=== PATIENT | female | born 1990 | race Caucasian/White ===

== ENCOUNTER → 2016-09-25 | Outpatient (CLI) | payer OTHER ==
--- NOTE | 2016-09-25 10:29 | DI ---
MRI LUMBAR SPINE SCAN WITHOUT IV CONTRAST, 09/25/2016 8:10 AM: Clinical History: Spinal stenosis. Previous Exam: 03/14/2016. Technique: Sagittal and axial T2 weighted; sagittal T1 weighted and T2 STIR; and axial PD. No IV cont rast was ordered. The vertebral bodies are of normal height and size. Since the last examination, the patient has under gone anterior and posterior fusion at L5-S1. The anterior fusion consists of a bone graft cage that l ies on the right half of the disc space. Posterior fusion is performed with a metallic struts on the left side that is transfixed with pedicle screws on the left side between L5 and S1. There is disc sp joaquín narrowing at L1-2. The L1-2 and the L3-4 through L5-S1 disc spaces show desiccation change. The c ord terminates at T12-L1, and the conus medullaris is normal. The disc spaces from T10-11 through T12 -L1 are normal. The L1-2 disc space has a very mild circumferentially bulging but not herniated disc without canal or neural foraminal stenosis. L2-3 is normal. L3-4 has a very mild circumferentially bu lging but not herniated disc with a midline disc annulus tear. L4-5 has a focal midline bulging but n ot herniated disc without canal or neural foraminal stenosis. There is edema in the L5 and S1 vertebr al bodies in association with the bone graft cage. There is no canal or neural foraminal stenosis. Readin. Status post anterior and posterior fusions at L5-S1. The bone graft cage is situated in the right half of the L5-S1 disc space and the respective vertebral endplates show marked edema probably relat ed to the recent surgical status. There is no canal or neural foraminal stenosis. 2. There are bulging but not herniated discs without canal or neural foraminal stenosis at L1-2, L3- 4, and L4-5. 3. The disc spaces from T10-11 through T12-L1 and at L2-3 are normal.
== END ==
LOC: MRI 08:03
PROVIDERS: ATTEND Neurological Surgery
DX: M48.06 Spinal stenosis, lumbar region (principal); M47.816 Spondylosis without myelopathy or radiculopathy, lumbar region
CPT/HCPCS: 72148

== ENCOUNTER → 2016-10-02 | Outpatient (CLI) | payer OTHER ==
[2016-10-02 18:43] LABS: HIV ANTIBODY NEGATIVE (N); HIV-1 P24 ANTIGEN NEGATIVE (N)
[2016-10-04 11:11] LABS: HEP B CORE IGM ANTIBODY Negative (Negative); HEPATITIS B SURFACE AG Negative (Negative)
[2016-10-04 17:30] LABS: HEPATITIS C ANTIBODY SCREEN Negative (Negative)
[2016-10-04 17:30] LABS: SYPHILIS IGG WITH REFLEX Negative (Negative)
== END ==
LOC: MOB LAB 15:55
PROVIDERS: ATTEND Physician Assistant Medical
DX: A64 Unspecified sexually transmitted disease (principal); Z20.2 Contact with and (suspected) exposure to infections with a predominantly sexual mode of transmission
CPT/HCPCS: 36415; 86695; 86696; 86703; 86705; 86709; 86780; 86803; 87340; 87491; 87591

== ENCOUNTER 2016-10-04 10:05 | Emergency (ER) | payer OTHER ==
[2016-10-04 10:34] VITALS: RESP 18; TEMP 97.1
--- NOTE | 2016-10-04 10:47 | PDOC ---
General Adult HPI - General Chief Complaint: Lower Extremity Problem/Injury Stated Complaint: leg pain Date Seen by Provider: 10/04/16 Time Seen by Provider: 10:10 Source: POSITIVE: Patient Exam Limitations: POSITIVE: No limitations Nurse's Notes Reviewed & Considered: Yes - History of Present Illness Initial Comment: The patient is a 25-year-old female who presents to the emergency department with worsening right leg pain. She underwent a L5-S1 fusion per Dr. Poole in [place] in July. Prior to and since her surgery she has continued to have problems with right leg pain. She states that she woke up this morning with intense pain in her right leg which has been unrelieved with Percocet at home. She denies any recent injury. She states that she has had some cold sweats and goosebumps over the past couple of days. She denies fever. She had one episode of mild urinary incontinence. She states that her right knee gives out occasionally possibly from pain. She states that the pain shoots down her right buttock down the back of her leg into the sole of her foot. She has had this pain since the surgery however the pain is more intense today. She did have an MRI performed last week and was started on a Medrol Dosepak which she started yesterday. In addition she ran out of Neurontin yesterday. Her mom had contacted Dr. Poole and he had recommended that she come to the emergency room for further pain control. Have you received a tetanus shot in the past 10 years?: Unknown - Patient Home Medications Home Medications: Home Medications Ibuprofen 800 mg PO TID PRN 02/28/15 Gabapentin 3 cap PO TID #270 cap 10/17/15 Hydrocodone/Acetaminophen [Hydrocodon-Acetaminoph 7.5-325] 1 - 2 tab PO Q6H #30 tab 07/28/16 Gabapentin [Neurontin] 900 mg PO TID #180 cap 10/04/16 Ketorolac Tromethamine [Toradol] 10 mg PO Q6H PRN #15 tablet 10/04/16 methylPREDNISolone Dose Pack [Medrol Dose Pack] 1 each PO ASDIR 10/04/16 - Patient Allergies Allergies/Adverse Reactions: Allergies Allergy/AdvReac Type Severity Reaction Status Date / Time codeine Allergy VOMIT Verified 10/04/16 10:17 tramadol Allergy N/V Verified 10/04/16 10:17 HEADACHE Past Medical History - heen HEENT History: Other (please comment) Additional HEENT History: DENTAL CARIES/H/O EAR ACHES Cardiovascular History: Other (please comment) Additional Cardiovasular History: HEART MURMUR Respiratory History: Other (please comment) Additional Respiratory History: smoker Gastrointestinal History: GERD, Gallbladder Disease Additional Gastrointestinal History: scooby Genitourinary History: Kidney Stones, Other (please comment) Additional Genitourinary History: INFECTIOUS DISORDER OF KIDNEY PER DR LIM. PATIENT DENIES ANY ISSUES REGARDING KIDNEY THAT SHE IS AWARE OF Endocrine History: Denies History Musculoskeletal History: Back Pain, Other (please comment) Prosthesis or Implant: No Additional Musculoskeletal History: chronic back pain, S1 L5 fusion 07/2016 Neurological History: Denies History Blood Disorders: Denies History Psychiatric History: Denies History History of Sexually Transmitted Diseases: No Female Reproductive History: Other (please comment) Additional Female Reproductive History: tubal ligation Cancer History: Denies History Cancer Treatment / Date(s) of Treatment: 2006 In Past Year Been Physically Harmed or Verbally Threatened: No History of MDRO: No History of Other Communicable Diseases: No Tobacco Use: Current Every Day Smoker Alcohol Use: Sober Substance Use Type: None Previous Surgical History: Yes Type / Date of Surgery: TUBAL LIGATION, CHOLECYSTECTOMY. L5 S1 Fusion 07/2016 Anesthesia Reactions: No (IRREGULAR HEART BEAT) Malignant Hyperthermia: No Significant Family History: Asthma, Hypertension Past Medical History Reviewed: Reviewed - No Changes ROS - Limitations ROS Limitations: No Limitations Constitution: REPORTS: Chills. DENIES: Fever Cardiovascular: REPORTS: Denies Cardiac Symptoms Respiratory: REPORTS: Denies Resp Symptoms Neurological: DENIES: Headache, Numbness, Weakness (She does report that her knee gives out occasionally in her right leg although it sounds like mostly secondary to pain) Gastrointestinal: REPORTS: Denies GI Symptoms Endocrine: REPORTS: Denies Symptoms Musculoskeletal: DENIES: Lower Extremity Swelling Genitourinary: REPORTS: Other (One episode of mild urinary incontinence). DENIES: Dysuria, Flank Pain, Hematuria, Difficulty Urinating Eyes: REPORTS: Denies Symptoms ENT: REPORTS: Denies Symptoms Skin: DENIES: Rash General Adult Exam - General Appearance General Appearance: POSITIVE: Alert, Cooperative, No Acute Distress - HEENT HEENT: POSITIVE: Head Inspection Nml - Neck Neck: POSITIVE: Normal Inspection - Respiratory Respiratory: POSITIVE: No Respiratory Distress, Breath Sounds Normal - Cardiovascular Cardiovascular: POSITIVE: Regular Rate & Rhythm, No Murmur Peripheral Pulses: Dorsalis-pedis (R): 2+ - Abdomen Abdomen: Soft: (All Quadrants), Denies Tenderness: (All Quadrants), No Distention: (All Quadrants) - Back Back: POSITIVE: Other (Examination of her lower back does reveal a midline incision from previous surgery which is well healed, there is no surrounding erythema or induration or drainage from the wound, she does have generalized tenderness in the lower lumbar region and especially over the right SI joint.) - Skin Skin: POSITIVE: Normal Color, No Rash - Extremities Extremity: Normal ROM: (All Extremities), Normal Inspection: (All Extremities) - Neurological / Psychological Neurological: POSITIVE: Motor Normal, Sensation Normal Reflexes: Achilles (R): 2+, Achilles (L): 2+, Patellar (R): 3+, Patellar (L): 2+ General Adult Progress - Results Reviewed by me Lab Results Reviewed: Yes Lab Results:: Laboratory Results 10/04/16 Range/Units 11:00 WBC 12.14 H (4.8-10.8) 10^3/uL RBC 5.59 H (4.20-5.40) 10^6/uL Hgb 16.2 H (12.0-16.0) g/dL Hct 47.8 H (37.0-47.0) % MCV 85.5 (81-99) FL MCH 29.0 (27-31) PG MCHC 33.9 (33-37) g/dL RDW Std Deviation 41.3 (39-50) fL RDW Coeff of Ce 13.5 (11.5-14.5) % Plt Count 302 (140-350) 10*3/uL MPV 10.3 (7.4-12.2) FL Immature Gran % (Auto) 0.1 (0-5) % Neut % (Auto) 72.5 (50-80) % Lymph % (Auto) 21.3 (10-50) % [place] % (Auto) 4.9 L (5-15) % Eos % (Auto) 0.8 (0-8) % Baso % (Auto) 0.4 (0-1) % Immature Gran # (Auto) 0.01 10*3/UL Neut # (Auto) 8.80 10*3/UL Lymph # (Auto) 2.59 10*3/uL [place] # (Auto) 0.59 (0.3-0.8) 10*3/UL Eos # (Auto) 0.10 10*3/UL Baso # (Auto) 0.05 10*3/UL WBC Morphology Comment Normal morphology (NORM) Plt Morphology Comment Normal morphology (NORM) RBC Morph Comment Normal morphology (NORM) ESR 2 (0-20) MM/HR Sodium 140 (135-145) meq/L Potassium 4.1 (3.8-5.2) meq/L Chloride 104 (98-112) meq/L Carbon Dioxide 24 (23-33) meq/L Anion Gap 12 (5-20) BUN 9 (7-22) mg/dL Creatinine 0.6 (0.50-1.20) mg/dL Estimated GFR > 60 (>60 ml/min/1.73m(2)) BUN/Creatinine Ratio 15.00 (6-20) Glucose 97 (78-110) mg/dL Calculated Osmolality 288.0 (267-292) mOsm/kg Calcium 10.2 (8.7-10.7) mg/dL Total Bilirubin 0.8 (0.3-1.2) mg/dL AST 17 (8-39) IU/L ALT 41 (9-52) IU/L Alkaline Phosphatase 95 (38-126) IU/L C-Reactive Protein 0.7 (0.0-0.9) mg/dL Total Protein 8.3 H (6.1-8.0) g/dL Albumin 4.9 H (3.5-4.8) g/dL Globulin 3.4 (2.50-4.10) g/dL Albumin/Globulin Ratio 1.40 (1.3-2.0) mg/g - Patient's Progress MDM / ED Course: Shortly after arrival I had contacted [facility] to discuss patient with Dr. Poole. He was initially tied up taking care of another patient there and was unavailable. I subsequently rasheed some baseline blood work and she was given Toradol 30 mg IV, morphine 4 mg IV and Zofran 4 mg IV for acute pain. Her pain came down to approximately a 7 out of 10 and was located primarily in the right hip region. She stated this is basically her baseline amount and location of pain. Lab work was all essentially unremarkable except for a mildly elevated white count which is likely attributed to recently starting on the Medrol Dosepak. I was able to discuss the patient with Dr. Poole and discussed laboratory findings and current presentation. The patient did have a recent MRI of her lumbar spine and he is unsure what the etiology of her continued radicular pain is at this point however he does not think it is related to her back. She is being referred for steroid injection and likely to pain management. He did not recommend any further evaluation at this time. The patient will be started back on her Neurontin. She previously was on 900 mg 3 times a day however has weaned herself off over the past several weeks because she knew she was running out. She will start back on 300 mg 3 times a day for 3 days and then increase to 600 mg 3 times a day. She then can increase to 900 mg 3 times a day after 1 week. She was advised to finish the Medrol Dosepak and she does have Percocet which she can take if needed for pain. She states that she is due to refill her prescription on Thursday and states that she still has Percocet at home that she can take. Dr. Poole did not think that further increases in narcotic medication would be beneficial. The patient was given a prescription for Toradol which seemed to be effective in treating her pain here. She was advised not to take this until she is done with her Medrol Dosepak however. She was advised return to the emergency room if she develops increased pain, any worsening or change in symptoms. She will follow-up with Dr. Poole as scheduled. - Consult Counseled: POSITIVE: Patient, Family, RE: Lab Results, RE: DX, RE: Need for F/U Patient Care Time - Estimated PCT Patient Care Time (In Minutes): 25 Vital Signs - Recent Vital Signs Vital Signs: Vital Signs (Last 8 hours) Temp Pulse Resp BP Pulse Ox 10/04/16 10:07 97.1 F 93 18 104/86 98 - VS Reviewed Vital Signs Reviewed: Yes Discharge Clinical Impression: Radicular leg pain Condition: Fair Prescriptions / Orders: Gabapentin [Neurontin] 900 mg PO TID #180 cap Ketorolac Tromethamine [Toradol] 10 mg PO Q6H PRN #15 tablet PRN Reason: Pain Additional Instructions: The blood work did not indicate any evidence of infection. I did talk with Dr. Poole. He is unsure of the exact cause of the right sided leg pain and thinks it may be unrelated to your back. He did recommend finishing the Medrol Dosepak. In addition we will restart Neurontin. Since this is basically out of your system at this point I would recommend taking 300 mg 3 times a day for 3 days, then can increase to 600 mg 3 times a day. This can be increased further after a week to 900 mg 3 times a day if needed. You have also been prescribed Toradol 10 mg every 6 hours as needed for pain which can be taken after you finish the Medrol Dosepak if needed. Continue your Percocet as previously prescribed. Return to the emergency room if increased pain, fevers or chills, any worsening or change in symptoms. Follow up with Dr. Poole. Follow Up With: DRAKE WHALEY [Primary Care Provider] -
[2016-10-04] MEDS ORDERED: KETOROLAC 30 MG/1 ML VIAL IVP ONE (10:52)
[2016-10-04] MEDS ORDERED: Sodium Chloride 0.9% 1,000 ML PRIMARY IV ONE (10:52)
[2016-10-04] MEDS ORDERED: MORPHINE SULFATE 2 MG/1 ML IVP ONE (10:52)
[2016-10-04] MEDS ORDERED: ONDANSETRON 4 MG/2 ML VIAL IVP ONE (10:52)
[2016-10-04] MEDS ORDERED: NORMAL SALINE 10 ML SYRINGE FLUSH IVP PRN (10:52)
[2016-10-04] MEDS ORDERED: ONDANSETRON 4 MG/2 ML VIAL ONE (11:08)
[2016-10-04] MEDS ORDERED: MORPHINE SULFATE 4 MG/1 ML ONE (11:09)
[2016-10-04] MEDS ORDERED: KETOROLAC 30 MG/1 ML VIAL ONE (11:09)
[2016-10-04] MEDS ORDERED: Sodium Chloride 0.9% 1,000 ML ONE (11:09)
[2016-10-04 11:21] LABS: BASOPHILS # (AUTO) 0.05 10*3/UL; BASOPHILS % (AUTO) 0.4 % (0-1); EOSINOPHILS % (AUTO) 0.8 % (0-8); HEMATOCRIT 47.8 % (37.0-47.0); HEMOGLOBIN 16.2 g/dL (12.0-16.0); IMM GRAN % (AUTO) 0.1 % (0-5); IMM GRAN# (AUTO) 0.01 10*3/UL; LYMPHOCYTES # (AUTO) 2.59 10*3/uL; LYMPHOCYTES % (AUTO) 21.3 % (10-50); MEAN CORPUSCULAR HGB CONC 33.9 g/dL (33-37); MEAN PLATELET VOLUME 10.3 FL (7.4-12.2); MONOCYTES # (AUTO) 0.59 10*3/UL (0.3-0.8); MONOCYTES % (AUTO) 4.9 % (5-15); NEUTROPHILS % (AUTO) 72.5 % (50-80); RDW COEFFICIENT OF VARIATION 13.5 % (11.5-14.5); RED BLOOD COUNT 5.59 10^6/uL (4.20-5.40); WHITE BLOOD COUNT 12.14 10^3/uL (4.8-10.8)
[2016-10-04 11:26] LABS: PLATELET MORPHOLOGY COMMENT NORMAL MORPHOLOGY (NORM)
[2016-10-04 11:38] LABS: ASPARTATE AMINO TRANSFERASE 17 IU/L (8-39); BILIRUBIN,TOTAL 0.8 mg/dL (0.3-1.2); BLOOD UREA NITROGEN 9 mg/dL (7-22); C-REACTIVE PROTEIN 0.7 mg/dL (0.0-0.9); CALCIUM 10.2 mg/dL (8.7-10.7); CHLORIDE 104 meq/L (98-112); CREATININE 0.6 mg/dL (0.50-1.20); EST GLOMERULAR FILTRATION > 60 (>60 ml/min/1.73m(2)); GLUCOSE 97 mg/dL (78-110); POTASSIUM 4.1 meq/L (3.8-5.2); SODIUM 140 meq/L (135-145); TOTAL PROTEIN 8.3 g/dL (6.1-8.0)
== END 2016-10-04 12:27 | disposition home or self-care (01) ==
LOC: ER 10:05
DX: M79.604 Pain in right leg (principal); Z98.890 Other specified postprocedural states
CPT/HCPCS: 80053; 85025; 85652; 86140; 96374; 96375; 99282; 99283; J1885; J2270; J2405; J7030

== ENCOUNTER → 2017-02-20 | Outpatient (CLI) | payer OTHER ==
--- NOTE | 2017-02-23 09:01 | DI ---
XR L-SPINE 2-3 VW,02/20/2017 4:17 PM: Clinical History: Radiculopathy Previous Exam: None at this facility. Findings: AP, lateral and coned-down views of the lumbar spine are obtained, and demonstrate transpedicular fix ation of the L5/S1 level. There is interbody fusion of L5/S1. Neural foramina appear widely patent. Disc spaces are preserved. The lung bases are clear. Patient is status post cholecystectomy. Impression: Postsurgical changes as above otherwise unremarkable.
== END ==
LOC: RAD 16:11
PROVIDERS: ATTEND Neurological Surgery
DX: M54.17 Radiculopathy, lumbosacral region (principal); Z98.1 Arthrodesis status
CPT/HCPCS: 72100

== ENCOUNTER 2017-04-12 13:10 | Emergency (ER) | payer OTHER ==
[2017-04-12] MEDS ORDERED: KETOROLAC 60 MG/2 ML VIAL IM ONE (13:26)
[2017-04-12 13:27] VITALS: RESP 16; TEMP 97.8
--- NOTE | 2017-04-12 14:08 | PDOC ---
Back Pain / Injury HPI - General Chief Complaint: Neck / Back Complaint Stated Complaint: back pain Date Seen by Provider: 04/12/17 Time Seen by Provider: 13:25 Source: Patient Exam Limitations: POSITIVE: No limitations Nurse's Notes Reviewed & Considered: Yes - History of Present Illness Initial Comments: The patient is a 26-year-old female who presents to the emergency department with worsening lower back pain. She has a history of prior lumbar fusion in July of last year at the L4-[address] Poole in [place]. She states that ever since her surgery she has had ongoing issues with pain in her lower back that radiates down her right leg. She has done multiple follow-ups with Dr. Poole and was seeing a stage settings painter in [place]. She was previously taking MS Contin and oxycodone for pain. Her stage settings painter apparently told her that they would no longer be able to provide her pain medications because the morphine did not show up in her system on her testing. She has not had any narcotic pain medication for the past 3 or 4 days. She reports that she took a minor fall on Thursday last week. Since then the pain in her lower back has increased. She has continued radiation of pain down her right leg. She reports occasional urinary incontinence which has been ongoing since her surgery. She denies any fevers or chills or any other associated complaints. She has been taking ibuprofen without any pain relief. - Patient Home Medications Home Medications: Home Medications Ibuprofen 800 mg PO TID PRN 04/12/17 Oxycodone HCl/Acetaminophen [Percocet 10-325 Mg Tablet] 1 each PO Q6H PRN #20 tablet 04/12/17 - Patient Allergies Allergies/Adverse Reactions: Allergies Allergy/AdvReac Type Severity Reaction Status Date / Time codeine Allergy VOMIT Verified 04/12/17 13:18 tramadol Allergy N/V Verified 04/12/17 13:18 HEADACHE Past Medical History - heen HEENT History: Other (please comment) Additional HEENT History: DENTAL CARIES/H/O EAR ACHES Cardiovascular History: Other (please comment) Additional Cardiovasular History: HEART MURMUR Respiratory History: Other (please comment) Additional Respiratory History: smoker Gastrointestinal History: GERD, Gallbladder Disease Additional Gastrointestinal History: scooby Genitourinary History: Kidney Stones, Other (please comment) Additional Genitourinary History: INFECTIOUS DISORDER OF KIDNEY PER DR LIM. PATIENT DENIES ANY ISSUES REGARDING KIDNEY THAT SHE IS AWARE OF Endocrine History: Denies History Musculoskeletal History: Back Pain, Other (please comment) Prosthesis or Implant: No Additional Musculoskeletal History: chronic back pain, S1 L5 fusion 07/2016 Neurological History: Denies History Blood Disorders: Denies History Psychiatric History: Denies History History of Sexually Transmitted Diseases: No LMP: 1 m Cancer History: Denies History Cancer Treatment / Date(s) of Treatment: 2006 In Past Year Been Physically Harmed or Verbally Threatened: No History of MDRO: No History of Other Communicable Diseases: No Tobacco Use: Current Every Day Smoker Alcohol Use: Sober Substance Use Type: None Previous Surgical History: Yes Type / Date of Surgery: TUBAL LIGATION, CHOLECYSTECTOMY. L5 S1 Fusion 07/2016 Anesthesia Reactions: No (IRREGULAR HEART BEAT) Malignant Hyperthermia: No Significant Family History: Asthma, Hypertension Past Medical History Reviewed: Reviewed - No Changes ROS - Limitations ROS Limitations: No Limitations Constitution: DENIES: Chills, Fever Cardiovascular: REPORTS: Denies Cardiac Symptoms Respiratory: REPORTS: Denies Resp Symptoms Neurological: DENIES: Numbness, Weakness Gastrointestinal: REPORTS: Denies GI Symptoms Eyes: REPORTS: Denies Symptoms ENT: REPORTS: Denies Symptoms Skin: DENIES: Rash Back Physical Assessment - General Appearance General Appearance: REPORTS: Alert, Cooperative, No Acute Distress - HEENT HEENT: POSITIVE: Head Inspection Nml, Eyes Inspection Nml, Ears Inspection Nml, Pharynx Inspect. Nml, PERRL, EOMI - Neck Neck: POSITIVE: Painless ROM, Trachea Midline - Respiratory / CVS Respiratory / CVS: POSITIVE: Breath Sounds Normal, No Respiratory Distress, Heart Sounds Normal, Regular Rate/Rhythm - Back Back: REPORTS: Other (Examination of her lower back reveals a midline incision from previous surgery which is well healed, there is no swelling or erythema, generalized tenderness in the lumbar region) - Skin Skin: REPORTS: Intact - Extremities Extremity Assessment: Normal ROM: (ALL), No Edema: (ALL) Peripheral Pulses: Dorsalis-pedis (R): 2+, Dorsalis-pedis (L): 2+ - Neurological / Psychological Neuro / Psych: POSITIVE: Oriented X3, Motor Normal, Sensation Normal Reflexes: Achilles (L): 1+, Patellar (R): 3+ Back Progress - Results Reviewed by me Xrays/CTs/US Reviewed: Yes Radiology Findings: X-ray of the lumbar spine reveals hardware from previous lumbar fusion which appears to be in place, there is no acute fracture. - Patient's Progress MDM / ED Course: The patient was given an injection of Toradol 60 mg IM as well as Norflex 60 mg IM for acute pain relief. X-rays were obtained and do not show any acute fracture and the hardware appears to be in place. She was advised to continue ibuprofen 600 mg every 6 hours as needed for pain. She was also prescribed oxycodone 10/325 which she can take if needed for pain. She currently does not have anybody to do pain management. She was advised to follow-up with her local physician here to discuss this issue. She was advised that the ER will not be able to continue to provide her pain management with narcotic pain medications. She is advised return to the emergency room if she develops any worsening or change in symptoms. - Consult Counseled: POSITIVE: Patient, RE: Radiology Results, RE: DX, RE: Need for F/U Patient Care Time - Estimated PCT Patient Care Time (In Minutes): 20 Vital Signs - Recent Vital Signs Vital Signs: Vital Signs (Last 8 hours) Temp Pulse Resp BP Pulse Ox 04/12/17 13:20 97.8 F 87 16 115/91 96 - VS Reviewed Vital Signs Reviewed: Yes Discharge Clinical Impression: Back pain Discharge Disposition: Discharged to Home Condition: Stable Prescriptions / Orders: Oxycodone HCl/Acetaminophen [Percocet 10-325 Mg Tablet] 1 each PO Q6H PRN #20 tablet PRN Reason: Pain Patient Instructions Given at Discharge: Chronic Back Pain (ED), Back Pain (ED) Additional Instructions: The x-rays of your lower back show that the hardware from her fusion appears to be in the proper position and there was no new fracture related to your recent fall. Recommend continuation of ibuprofen 600 mg every 6 hours as needed for pain. In addition your been prescribed oxycodone 10/325 (#20) which she can take one every 4-6 hours as needed for pain. Recommend follow-up with Dr. Whaley to discuss ongoing pain management and/or referral. The emergency room will not be able to continue to provide your ongoing pain management. Return to the emergency room if any worsening or change in symptoms. Follow Up With: DRAKE WHALEY [Primary Care Provider] -
--- NOTE | 2017-04-12 14:21 | DI ---
HISTORY: Fell 2 days ago with increased lower back pain. COMPARISON: 02/20/2017. FINDINGS: Examination of the lumbar spine reveals post surgical posterior cher and pedicle screw exte nding L5 to S1 on the right side apparently for spinal fusion which appears to be in satisfactory pos ition and alignment. There is no evidence of recent fracture or dislocation. IMPRESSION: 1. Post surgical posterior cher and pedicle screw extending L5 to S1 on the right side apparently for spinal fusion which appears to be in satisfactory position and alignment. 2. No evidence of recent fracture or dislocation.
== END 2017-04-12 14:07 | disposition home or self-care (01) ==
LOC: ER 13:10
DX: M54.5 Low back pain (principal); W18.39XA Other fall on same level, initial encounter
CPT/HCPCS: 72100; 96372; 99282; 99283; J1885; J2360